=== PATIENT | female | born 1980 | race Caucasian/White ===

== ENCOUNTER 2016-06-28 10:44 | Day surgery (SDC) | payer OTHER ==
[~2016-06-28] VITALS: Ht 160 cm; Wt 73.8 kg
[2016-06-28] VITALS (10 sets, daily range): BP systolic 106–122; BP diastolic 45–79; PULSE 77–104; TEMP 98.6
[2016-06-28] MEDS ORDERED: RT ADVAIR HFA 1112 G IH (11:47)
[2016-06-28] MEDS ORDERED: FLONASE NASAL S16 GM NS (11:48)
[2016-06-28] MEDS ORDERED: PROVENTIL0.09 MG/A1 IH (11:48)
[2016-06-28] MEDS ORDERED: NEXIUM 40MG40 MG PO (11:49)
[2016-06-28] MEDS ORDERED: NYSTATIN OR100 MU/ML PO (11:49)
[2016-06-28] MEDS ORDERED: SYNTHROID0.075 MG/T PO (11:50)
[2016-06-28] MEDS ORDERED: VIORELE 0.15 MG1 TAB PO (11:50)
[2016-06-28] MEDS ORDERED: ZYRTEC 10MG10 MG PO (11:51)
[2016-06-28] MEDS ORDERED: CYANOCOBAL1000 MCG/1 IM (11:53)
== END 2016-06-28 16:40 | disposition home or self-care (01) ==
LOC: SDCO 10:44
DX: K80.50 Calculus of bile duct without cholangitis or cholecystitis without obstruction (principal)
CPT/HCPCS: C1769; J2405; J2704; J3010; J7030; Q9967

== ENCOUNTER → 2016-07-06 | Outpatient (CLI) | payer OTHER ==
[~2016-07-06] MED LIST: CYANOCOBAL1000 MCG/1 IM; FLONASE NASAL S16 GM NS; NEXIUM 40MG40 MG PO; NYSTATIN OR100 MU/ML PO; PROVENTIL0.09 MG/A1 IH; RT ADVAIR HFA 1112 G IH; SYNTHROID0.075 MG/T PO; VIORELE 0.15 MG1 TAB PO; ZYRTEC 10MG10 MG PO
== END ==
LOC: COL.RAD 07:53
DX: R10.84 Generalized abdominal pain (principal); Z90.49 Acquired absence of other specified parts of digestive tract
CPT/HCPCS: Q9967